=== PATIENT | female | born 1950 | race American Indian/Alaskan Native ===

== ENCOUNTER 2017-03-27 10:25 | Outpatient (CLI) | payer MEDICARE ==
--- NOTE | 2017-03-27 11:27 | Cat Scan Report ---
CT scan of head without contrast: History: Migraine. Findings: Ventricles are normal in size and midline in location. No evidence of acute ischemia, hemorrhage or mass. No extra-axial fluid collection. Normal brainstem and cerebellum. Impression: No acute intracranial abnormality.
== END 2017-03-27 10:26 | disposition home or self-care (01) ==
LOC: CT 10:25
PROVIDERS: ATTEND Nurse Practitioner Family
DX: G43.011 Migraine without aura, intractable, with status migrainosus (principal); I11.0 Hypertensive heart disease with heart failure; I50.9 Heart failure, unspecified; E11.9 Type 2 diabetes mellitus without complications; E78.2 Mixed hyperlipidemia; E03.9 Hypothyroidism, unspecified; E66.01 Morbid (severe) obesity due to excess calories
CPT/HCPCS: 70450

== ENCOUNTER 2019-04-01 10:56 | Day surgery (SDC) | payer MEDICARE ==
--- NOTE | 2019-04-01 09:25 | Anesthesia Day of Surgery ---
Anesthesia Day of Surgery - Day of Surgery Patient Examined: Yes Patient H&P Reviewed: Yes Patient is NPO: Yes
--- NOTE | 2019-04-01 09:26 | Anesthesia Consultation ---
<JANE LOBO - Last Filed: 04/01/19 09:26> Anesthesia Consult and Med Hx Date of service: 04/01/19 - Pre-Operative Health Status Proposed Anesthetic Plan: MAC - Pulmonary Hx Smoking: No - Cardiovascular System Hx Hypertension: Yes - Central Nervous System Hx Psychiatric Problems: No - Endocrine Hx Hypothyroidism: Yes - Hematic Hx Anemia: No - Other Systems Hx Cancer: No <JOSE DELEON - Last Filed: 04/01/19 13:47> Anesthesia Consult and Med Hx - Additional Comments Anesthesia Medical History Comments: Hx IDDM with BG 250s on arrival to pre-op. Reports that she stopped using insulin at home 1 month ago because she "got tired of sticking herself." She reports BG range 150s-250s at home. Refuses insulin therapy today. Will proceed with planned procedure and recheck glucose in PACU.
[~2019-04-01 10:56] MED LIST: NACL 0.9% 1000 ML 1,000 ML IV SCH
[2019-04-01] MEDS ORDERED: DIPRIVAN 10 MG/ML IV ONE ×2 (15:15)
[2019-04-01] MEDS ORDERED: XYLOCAINE 2% INFILTRATI ONE (15:16)
--- NOTE | 2019-04-01 15:30 | Operative Report ---
Operative Report Operative Report: Date: 04/01/2019 Operative Report: Date of procedure: 04/01/2019 Procedure: Esophagogastroduodenoscopy with multiple mucosal biopsies. Attending physician: Martin Reardon MD Mainframe Developer: Martin Reardon MD Indication: Patient is a 68 -year-old female who presented with a personal history of peptic ulcer disease. Patient is status post treatment. An upper endoscopy is done to assess patient for healing of the gastric ulcer, so that treatment may be directed based on the findings. Consent: Informed consent was obtained after advising the patient and family regarding nature of this procedure, its indications, potential benefits as well as possible complications including but not limited to bleeding perforation and adverse reaction to medication, infection as well as other cardiopulmonary complications. An informed written and verbal consent was then obtained after due opportunity was provided for questions and answers. Monitoring: Patient was monitored continuously with pulse oximetry and electrocardiographic recordings as well as blood pressure recordings. Vital signs remained stable throughout this procedure with no untoward events. Preoperative assessment: Patient was assessed immediately prior to this procedure for capacity to tolerate monitored anesthesia care and moderate sedation as well as general anesthesia. Patient's ASA classification is 3, Mallampati class is 2, Hyomental distance is 3. Instrument: Olympus video endoscope: [id number] [id number] Medications: Propofol given intravenously in divided doses. For details please refer to anesthesia records. Description of procedure: Patient was placed in the left lateral decubitus position after achieving sedation, the endoscope was introduced into the esophagus under direct vision. It was then advanced beyond the esophagus into the stomach and then beyond the stomach into the duodenum and to the second portion of the duodenum. It was subsequently withdrawn with careful inspection of all mucosal surfaces with the following findings. Findings: Patient had an irregular Z line at 38 cm. There was a small sliding hiatal hernia seen on entry into the stomach. Patient had erythema seen. There was no gastric ulcer seen on this examination. Biopsies were obtained from the antrum for histopathology. The duodenum was normal to the second portion Impression: Irregular Z line. Sliding hiatal hernia. Gastric antral erythema Plan: There has been interval resolution of the peptic ulcer disease. Follow pathology report. Direct additional treatment based on the pathology report.
--- NOTE | 2019-04-01 15:31 | Discharge Summary ---
Short Stay Discharge Plan Activity: advance as tolerated Weight Bearing Status: Weight Bear as Tolerated Diet: regular Follow up with: CATHLEEN AMEZQUITA MD [Primary Care Provider] - 7 Days
[2019-04-01 16:01] VITALS: BP 156/84
== END 2019-04-01 10:57 | disposition home or self-care (01) ==
LOC: GIO 10:56
PROVIDERS: ATTEND Internal Medicine Gastroenterology
DX: K29.50 Unspecified chronic gastritis without bleeding (principal); K52.9 Noninfective gastroenteritis and colitis, unspecified; K44.9 Diaphragmatic hernia without obstruction or gangrene; I11.0 Hypertensive heart disease with heart failure; I50.9 Heart failure, unspecified; I25.10 Atherosclerotic heart disease of native coronary artery without angina pectoris; J45.909 Unspecified asthma, uncomplicated; E03.9 Hypothyroidism, unspecified; Z80.8 Family history of malignant neoplasm of other organs or systems; Z98.890 Other specified postprocedural states; Z90.710 Acquired absence of both cervix and uterus; Z79.899 Other long term (current) drug therapy; Z72.89 Other problems related to lifestyle; Z98.49 Cataract extraction status, unspecified eye
CPT/HCPCS: 43239; 82962; 88305; 88342; J2704; J7030